=== PATIENT | female | born 1965 | race Caucasian/White ===

== ENCOUNTER 2016-10-05 00:02 | Emergency (ER) | payer OTHER ==
--- NOTE | ~2016-10-05 | CR72 ---
[facility] A Service of [facility] RADIOLOGY TEXT RESULTS PATIENT: ANTOINE MURRY LOCATION: [facility] : 67 UNIT #: [id number] AGE: [address]: John Garcia SEX: F ORDER DR: [id number] [facility] [address] [place], [place] [address] [id number] MR#: [id number] Acc #: [id number] NAME: ANTOINE MURRY : 1965 SEX: F STUDY DATE/TIME: 10/05/2016 2:02 UNIT: [facility] ROOM: STUDY DESCRIPTION: CR Chest Single View Portable Attending Physician: John Garcia P.A.-C. Ordering Physician: John Garcia P.A.-C. Primary Care Physician: Willy Mancia M.D. MEDICAL IMAGING REPORT This report is preliminary unless electronic signature is present EXAM Portable chest INDICATION Shortness of air, bilateral leg swelling for 2 days. FINDINGS A portable view of the chest was obtained and compared to 01/08/2012. The heart size and vascularity are normal. The lungs are clear. There is a faint ring-like device superimposed upon the upper mediastinum which is clearly a man-made device and is probably an external object. IMPRESSION No active disease. There appears to be about a 4 cm ring-like external faint object superimposed upon the chest. Dictated by... Ye Cary M.D. THIS IS AN ELECTRONICALLY VERIFIED REPORT Ye Cary M.D. at 10/05/2016 1:31 PM RAPHAEL/bushra TD: 10/05/2016 09:01 JOB #: [id number] MEDICAL IMAGING REPORT Page 1 of 1 COPY
--- NOTE | ~2016-10-05 | EKG ---
PATIENT: ANTOINE MURRY UNIT #: [id number] Ventricular Rate: 72 BPM Atrial Rate: 72 BPM P-R Interval: 136 ms QRS Duration: 88 ms Q-T Interval: 398 ms QTC Calculation(Bezet): 435 ms P [place]: 65 degrees Calculated R [place]: 41 degrees Calculated T [place]: 59 degrees Diagnosis Line: Normal sinus rhythm Diagnosis Line: Normal ECG Diagnosis Line: No previous ECGs available Diagnosis Line: Confirmed by OPAL BURNETT MD ([id number]) on Diagnosis Line: 10/05/2016 9:05:57 AM INTERPRETING MD: HORTENCIA KINGSTON
[2016-10-05 02:36] LABS: BASOPHIL# 0.1 X10e3 (0-0.3); BASOPHIL% 0.7 % (0-2.5); DIFF IND NO; EOSINOPHIL# 0.1 X10e3 (0-0.7); EOSINOPHIL% 1.4 % (0.0-7.0); HEMATOCRIT 39.3 % (35.0-45.0); HEMOGLOBIN 12.9 gm/dL (12.0-16.0); LYMPHOCYTE# 2.6 X10e3 (1.0-3.5); LYMPHOCYTE% 24.4 % (17.0-45.0); MEAN CELL VOLUME 90.1 FL (83-96); MEAN CORPUSCULAR HEMOGLOBIN 29.5 PG (28-34); MEAN CORPUSCULAR HGB CONC 32.7 g/dL (30-36); MEAN PLATELET VOLUME 9.2 FL (6.5-11.5); MONOCYTE# 0.7 X10e3 (0-1.0); MONOCYTE% 6.9 % (3.0-12.0); NEUTROPHIL% 66.6 % (40-75); PLATELET COUNT 221 X10e3 (140-420); RED BLOOD COUNT 4.36 X10e (3.90-5.30); RED CELL DISTRIBUTION WIDTH 13.6 % (11.0-15.5); WHITE BLOOD COUNT 10.5 X10e3 (4.0-10.5)
[2016-10-05 02:46] LABS: POC - CKMB <1.0 ng/mL (0.0-7.9); POC - TROPONIN <0.05 ng/mL (<=0.05)
[2016-10-05 03:02] LABS: ALBUMIN SERUM 3.8 g/dL (3.5-5.0); BILIRUBIN, DIRECT 0.1 mg/dL (0.0-0.2); BILIRUBIN,INDIRECT 0.2 mg/dL (0.0-0.9); BILIRUBIN,TOTAL 0.3 mg/dL (0.2-2.0); BUN/CREATININE RATIO 13.33; CREATININE SERUM 0.6 mg/dL (0.6-1.4); GLOM FILT RATE Estimated 106.3 mL/min (>60); POTASSIUM 3.2 mmol/L (3.5-5.1); PROTEIN TOTAL SERUM 6.4 g/dL (6.0-8.3)
== END 2016-10-05 04:00 | disposition home or self-care (01) ==
LOC: CED 00:02
PROVIDERS: Physician Assistant
DX: M79.662 Pain in left lower leg (principal); R06.02 Shortness of breath; R00.2 Palpitations; M54.2 Cervicalgia; M54.9 Dorsalgia, unspecified; Z90.710 Acquired absence of both cervix and uterus; Z88.5 Allergy status to narcotic agent
CPT/HCPCS: 36415; 71010; 80048; 80076; 82553; 83880; 84443; 84484; 85025; 85379; 93005; 96360; 96372; 99284; J1650

== ENCOUNTER → 2016-10-05 | Outpatient (CLI) | payer OTHER ==
[~2016-10-05] MED LIST: ASPIRIN81 M1 PO; COREG PO; LISINOPRIL; PHENERGAN25 MG PO; SKELAXIN PO; VOLTAREN50 MG PO
--- NOTE | ~2016-10-05 | US85 ---
[facility] A Service of [facility] RADIOLOGY TEXT RESULTS PATIENT: ANTOINE MURRY LOCATION: [facility] : 67 UNIT #: [id number] AGE: [address]: John Garcia SEX: F ORDER DR: [id number] [facility] [address] [place], [place] [address] [id number] MR#: [id number] Acc #: [id number] NAME: ANTOINE MURRY : 1965 SEX: F STUDY DATE/TIME: 10/05/2016 16:45 UNIT: [facility] ROOM: STUDY DESCRIPTION: [facility] Attending Physician: John Garcia P.A.-C. Referring Physician: John Garcia P.A.-C. Ordering Physician: John Garcia P.A.-C. Primary Care Physician: Willy Mancia M.D. MEDICAL IMAGING REPORT This report is preliminary unless electronic signature is present EXAM Left lower extremity venous duplex, 10/05/2016. HISTORY Left lower extremity pain and edema for 2 days; evaluate for deep vein thrombosis. TECHNIQUE Venous ultrasound examination of the left lower extremity was performed using grayscale, spectral Doppler and color flow Doppler imaging. FINDINGS The examination is negative. There is no evidence of left lower extremity deep venous thrombus from the groin to the lower calf. Visualized greater saphenous vein is also patent. IMPRESSION Negative examination. No evidence of left lower extremity DVT. Dictated by... Dexter Walker M.D. THIS IS AN ELECTRONICALLY VERIFIED REPORT Dexter Walker M.D. at 10/08/2016 10:15 AM KRYSTLE/gerhard TD: 10/05/2016 21:35 JOB #: [id number] MEDICAL IMAGING REPORT [facility] A Service [facility] RADIOLOGY TEXT RESULTS PATIENT: ANTOINE MURRY LOCATION: [facility] #: [id number] : 67 UNIT #: [id number] AGE: [address]: John Garcia SEX: F ORDER DR: Page 1 of 1 COPY
== END | disposition home or self-care (01) ==
LOC: CGUS 16:30
DX: M79.605 Pain in left leg (principal); R79.1 Abnormal coagulation profile
CPT/HCPCS: 93971